=== PATIENT | male | born 1935 | race Caucasian/White ===

== ENCOUNTER 2017-01-28 12:13 | Inpatient (IN) | payer MEDICARE ==
[~2017-01-28] VITALS: Ht 180.3 cm; Wt 60.5 kg
[2017-01-28] MEDS ORDERED: UNKNOWN MEDS (12:37)
[2017-01-28] MEDS ORDERED: LORA0.5T PO (12:37)
[2017-01-28] MEDS: SODIUM CHLORIDE 0.9% 1,000 ML IV SCH (13:27)
[2017-01-28] MEDS ORDERED: ENALAPRILAT 1.25 MG/ML, 2ML IVPush PRN (13:30)
[2017-01-28] MEDS ORDERED: ONDANSETRON 2MG/ML, 2ML IVPush PRN (13:30)
[2017-01-28] MEDS ORDERED: morphine SULFATE 10 MG/ML, 1ML IVPush PRN (13:30)
[2017-01-28] MEDS ORDERED: POLYETHYLENE GLYCOL 17 GM PACKET PO PRN (13:30)
[2017-01-28] MEDS ORDERED: hydrALAzine 20 MG/ML, 1ML IVPush PRN (13:30)
[2017-01-28 13:44] LABS: HEMATOCRIT 39.2 % (39.2-51.8); WHITE BLOOD COUNT 5.3 x10^3/uL (3.4-10)
[2017-01-28 13:59] VITALS: BP 146/81
[2017-01-28] MEDS ORDERED: PLEASE ENTER ALLERGIES MC SCH ×2 (14:00)
[2017-01-28] MEDS ORDERED: POTASSIUM CHLORIDE 40 MEQ in SODIUM CHLORIDE 0.9% 1,000 ML IV SCH (15:27)
[2017-01-28] MEDS ORDERED: FENTANYL PF 100 MCG/2ML ONE ×3 (15:37)
[2017-01-28] MEDS ORDERED: BUPIVACAINE/PF 0.5% ONE (15:57)
[2017-01-28] MEDS ORDERED: THROMBIN 5,000 UNIT VIAL TP ONE (15:58)
[2017-01-28] MEDS ORDERED: BACITRACIN 50,000 UNIT ONE (15:58)
[2017-01-28] MEDS ORDERED: EPINEPHRINE 1 MG/ML, 1ML ONE (15:58)
[2017-01-28] MEDS ORDERED: hydrALAzine 20 MG/ML, 1ML IV PRN (16:00)
[2017-01-28] MEDS ORDERED: FENTANYL PF 100 MCG/2ML IV PRN (16:00)
[2017-01-28] MEDS ORDERED: PROMETHAZINE 25 MG/ML, 1ML IV PRN (16:00)
[2017-01-28] MEDS ORDERED: ALBUTEROL SULFATE 2.5 MG/3 ML NPPB PRN (16:00)
[2017-01-28] MEDS ORDERED: OXYcodone 5 MG/5 ML ORAL.SOL UDC PO PRN (16:00)
[2017-01-28] MEDS ORDERED: METOPROLOL 1 MG/ML, 5ML IV PRN (16:00)
[2017-01-28] MEDS ORDERED: HYDROmorphone 1 MG/ML, 1ML IV PRN (16:00)
[2017-01-28] MEDS ORDERED: ACETAMINOPHEN 325 MG TABLET PO PRN (16:00)
[2017-01-28] MEDS ORDERED: HALOPERIDOL 5 MG/ML IV ONE (16:00)
[2017-01-28] MEDS ORDERED: EPHEDRINE 50 MG/ML, 1ML ONE (16:04)
[2017-01-28] MEDS ORDERED: ONDANSETRON 2MG/ML, 2ML ONE (16:04)
[2017-01-28] MEDS ORDERED: DEXAMETHASONE 4 MG/ML, 1ML ONE (16:04)
[2017-01-28] MEDS ORDERED: CEFAZOLIN 1,000 MG ONE (16:04)
[2017-01-28] MEDS ORDERED: SUCCINYLCHOLINE 20 MG/ML, 10ML ONE (16:04)
[2017-01-28] MEDS ORDERED: PROPOFOL 10 MG/ML, 20ML ONE (16:04)
[2017-01-28] MEDS ORDERED: BUPIVACAINE/PF-EPI 0.5% 1:200K INFIL ONE (16:25)
[2017-01-28] MEDS ORDERED: OXYcodone 5 MG/5 ML ORAL.SOL UDC ONE (17:26)
[2017-01-28] MEDS ORDERED: LEVETIRACETAM 100 MG/ML, 5ML IV SCH (18:00)
[2017-01-28] MEDS: LEVETIRACETAM 500 MG in SODIUM CHLORIDE 0.9% 100 ML IV SCH (20:24)
[2017-01-28] MEDS: CEFUROXIME 1.5 GM in SODIUM CHLORIDE 0.9% 50 ML IVPB SCH (23:08)
[2017-01-29] MEDS: SODIUM CHLORIDE 0.9% 1,000 ML IV SCH (00:46)
[2017-01-29 03:51] VITALS: BP 114/66
[2017-01-29 04:19] LABS: HEMATOCRIT 38.9 % (39.2-51.8); WHITE BLOOD COUNT 6.3 x10^3/uL (3.4-10)
[2017-01-29 04:30] LABS: BLOOD UREA NITROGEN 17 mg/dL (7-18)
[2017-01-29 04:33] LABS: ASPARTATE AMINO TRANSFERASE 15 U/L (15-37)
[2017-01-29] MEDS: LEVETIRACETAM 500 MG in SODIUM CHLORIDE 0.9% 100 ML IV SCH ×2 (05:42→17:17)
[2017-01-29] MEDS: CEFUROXIME 1.5 GM in SODIUM CHLORIDE 0.9% 50 ML IVPB SCH (07:10)
[2017-01-29] MEDS: PANTOPRAZOLE 40 MG IV IVPush SCH (07:10)
[2017-01-29] MEDS ORDERED: SODIUM CHLORIDE 0.9% 1,000 ML IV SCH (08:30)
[2017-01-29] MEDS: SENNA/DOCUSATE TABLET PO SCH (08:45)
[2017-01-29] MEDS: ACETAMINOPHEN 325 MG TABLET PO PRN (12:37)
[2017-01-29] MEDS: OXYcodone IR 5MG TABLET PO PRN ×2 (21:30→22:22)
[2017-01-30] MEDS: OXYcodone IR 5MG TABLET PO PRN (03:23)
[2017-01-30 04:21] VITALS: BP 128/70
[2017-01-30 04:23] LABS: HEMATOCRIT 37.6 % (39.2-51.8); HEMOGLOBIN 12.4 g/dL (13.7-18.0); WHITE BLOOD COUNT 7.2 x10^3/uL (3.4-10)
[2017-01-30 04:31] LABS: BLOOD UREA NITROGEN 18 mg/dL (7-18)
[2017-01-30] MEDS: LEVETIRACETAM 500 MG in SODIUM CHLORIDE 0.9% 100 ML IV SCH ×2 (05:34→16:59)
[2017-01-30] MEDS: PANTOPRAZOLE 40 MG IV IVPush SCH (06:43)
[2017-01-30] MEDS: SENNA/DOCUSATE TABLET PO SCH (08:06)
[2017-01-30] MEDS ORDERED: ERGOCALCIFEROL 50,000 UNIT CAPSULE PO SCH (14:00)
[2017-01-30 18:19] VITALS: BP 144/88
[2017-01-31] MEDS: ACETAMINOPHEN 325 MG TABLET PO PRN ×2 (00:16→19:52)
[2017-01-31 02:26] VITALS: BP 140/77
[2017-01-31] MEDS: LEVETIRACETAM 500 MG in SODIUM CHLORIDE 0.9% 100 ML IV SCH ×2 (05:21→17:52)
[2017-01-31 05:30] LABS: HEMATOCRIT 39.5 % (39.2-51.8); HEMOGLOBIN 13.3 g/dL (13.7-18.0); WHITE BLOOD COUNT 6.6 x10^3/uL (3.4-10)
[2017-01-31] MEDS: SENNA/DOCUSATE TABLET PO SCH (07:44)
[2017-01-31 08:34] VITALS: BP 128/73
[2017-01-31 13:11] VITALS: BP 112/68
[2017-01-31] MEDS ORDERED: ERGO500017 PO (13:46)
[2017-01-31] MEDS ORDERED: LEVE500T53 PO (13:46)
[2017-01-31] MEDS ORDERED: TRAM50TA2 PO (13:46)
[2017-01-31] MEDS ORDERED: ENAL1.2513 IVPush (13:46)
[2017-01-31] MEDS ORDERED: HYDR20VI3 IVPush (13:46)
[2017-01-31 20:03] VITALS: BP 128/73
[2017-02-01 03:18] VITALS: BP 109/72
[2017-02-01 05:09] LABS: HEMATOCRIT 38.4 % (39.2-51.8); HEMOGLOBIN 13.1 g/dL (13.7-18.0); WHITE BLOOD COUNT 6.2 x10^3/uL (3.4-10)
[2017-02-01] MEDS: LEVETIRACETAM 500 MG in SODIUM CHLORIDE 0.9% 100 ML IV SCH (05:46)
[2017-02-01] MEDS: SENNA/DOCUSATE TABLET PO SCH (07:04)
[2017-02-01 08:05] VITALS: BP 121/83
[2017-02-01] MEDS: ACETAMINOPHEN 325 MG TABLET PO PRN (13:52)
[2017-02-01 14:05] VITALS: BP 110/74
[2017-02-01 16:56] VITALS: BP 131/75
== END 2017-02-01 17:22 | DRG 25 ==
LOC: ED 12:36 → EDIP 13:38 → 4NOR 13:55 → CCU 17:53 → 4NOR 01-30 17:55
PROVIDERS: ADMIT Internal Medicine; ATTEND Internal Medicine
PROC: 30233R1 Transfusion of Nonautologous Platelets into Peripheral Vein, Percutaneous Approach (ICD-10-PCS; 2017-01-28)
PROC: 00C40ZZ Extirpation of Matter from Intracranial Subdural Space, Open Approach (ICD-10-PCS; principal; 2017-01-28 15:15)
DX: S06.5X9A Traumatic subdural hemorrhage with loss of consciousness of unspecified duration, initial encounter (principal); E43 Unspecified severe protein-calorie malnutrition; D64.9 Anemia, unspecified; I34.0 Nonrheumatic mitral (valve) insufficiency; E83.51 Hypocalcemia; E55.9 Vitamin D deficiency, unspecified; R26.2 Difficulty in walking, not elsewhere classified; R29.6 Repeated falls; M19.90 Unspecified osteoarthritis, unspecified site; I45.10 Unspecified right bundle-branch block; Z79.82 Long term (current) use of aspirin; Z85.038 Personal history of other malignant neoplasm of large intestine; Z87.891 Personal history of nicotine dependence; Z95.0 Presence of cardiac pacemaker; Z81.8 Family history of other mental and behavioral disorders
CPT/HCPCS: 36415; 70450; 80048; 80053; 82306; 83970; 85025; 85610; 86850; 86900; 87081; 93005; 99285; C1713; J0171; J0690; J0697; J1100; J1953; J2405; J2704; J3010; J3480; J3490; 92523-GN; C9113; J0330; J7030; P9035

== ENCOUNTER 2017-07-13 07:08 | Day surgery (SDC) | payer MEDICARE ==
[~2017-07-13] VITALS: Ht 177.8 cm; Wt 58.9 kg
[~2017-07-13 07:08] MED LIST: ENAL1.2513 IVPush; ERGO500017 PO; HYDR20VI3 IVPush; LEVE500T53 PO; LORA0.5T PO; TRAM50TA2 PO; UNKNOWN MEDS
[2017-07-13] MEDS ORDERED: LACTATED RINGERS 1,000 ML IV SCH (08:03)
[2017-07-13 08:05] VITALS: BP 130/81
[2017-07-13] MEDS ORDERED: ESCI10TA PO (08:17)
[2017-07-13] MEDS ORDERED: LEVO175T5 PO (08:17)
[2017-07-13] MEDS ORDERED: LORA-445 PO (08:17)
[2017-07-13] MEDS ORDERED: HYDR-3240 PO (08:17)
[2017-07-13] MEDS ORDERED: DOCU100C33 PO (08:17)
[2017-07-13] MEDS ORDERED: METO25TA91 PO (08:17)
[2017-07-13] MEDS ORDERED: TRAZ50TA18 PO (08:17)
[2017-07-13] MEDS ORDERED: NAPR500T4 PO (08:17)
[2017-07-13] MEDS ORDERED: FENTANYL PF 100 MCG/2ML ONE (08:50)
[2017-07-13] MEDS ORDERED: MIDAZOLAM 1 MG/ML, 2ML ONE (08:50)
[2017-07-13] MEDS ORDERED: DEXAMETHASONE 4 MG/ML, 1ML ONE ×2 (09:05→10:48)
[2017-07-13] MEDS ORDERED: ONDANSETRON 2MG/ML, 2ML ONE ×2 (09:05→10:48)
[2017-07-13] MEDS ORDERED: CEFAZOLIN 1,000 MG ONE ×2 (09:05→10:48)
[2017-07-13] MEDS ORDERED: PROPOFOL 10 MG/ML, 20ML ONE ×2 (09:05→10:48)
[2017-07-13] MEDS ORDERED: OXYcodone 5 MG/5 ML ORAL.SOL UDC PO PRN (10:00)
[2017-07-13] MEDS ORDERED: ONDANSETRON 2MG/ML, 2ML IVPush PRN (10:00)
[2017-07-13] MEDS ORDERED: HYDROcodone/APAP 7.5-325MG/15ML UDC PO PRN (10:00)
[2017-07-13] MEDS ORDERED: DIAZEPAM 5 MG/ML, 2ML IVPush PRN (10:00)
[2017-07-13] MEDS ORDERED: ACETAMINOPHEN 325 MG TABLET PO PRN (10:00)
[2017-07-13] MEDS ORDERED: EPHEDRINE 50 MG/ML, 1ML IVPush PRN (10:00)
[2017-07-13] MEDS ORDERED: ALBUTEROL SULFATE 2.5 MG/3 ML NPPB PRN (10:00)
[2017-07-13] MEDS ORDERED: PROMETHAZINE 12.5 MG SUPP PR PRN (10:00)
[2017-07-13] MEDS ORDERED: MIDAZOLAM 1 MG/ML, 2ML IV PRN (10:00)
[2017-07-13] MEDS ORDERED: LABETALOL 5MG/ML, 20ML IV PRN (10:00)
[2017-07-13] MEDS ORDERED: METOPROLOL 1 MG/ML, 5ML IV PRN (10:00)
[2017-07-13] MEDS ORDERED: HYDROmorphone 1 MG/ML, 1ML IV PRN (10:00)
[2017-07-13] MEDS ORDERED: FENTANYL PF 100 MCG/2ML IV PRN (10:00)
[2017-07-13] MEDS ORDERED: MEPERIDINE/PF 25MG/0.5ML IVPush PRN (10:00)
[2017-07-13] MEDS ORDERED: hydrALAzine 20 MG/ML, 1ML IV PRN (10:00)
== END 2017-07-13 13:40 ==
LOC: OUT 07:08
PROVIDERS: ATTEND Orthopaedic Surgery
DX: S42.291A Other displaced fracture of upper end of right humerus, initial encounter for closed fracture (principal); I10 Essential (primary) hypertension; E03.9 Hypothyroidism, unspecified; F41.9 Anxiety disorder, unspecified; X58.XXXA Exposure to other specified factors, initial encounter; Y93.89 Activity, other specified; Y92.89 Other specified places as the place of occurrence of the external cause; Y99.8 Other external cause status; Z85.038 Personal history of other malignant neoplasm of large intestine; Z95.0 Presence of cardiac pacemaker
CPT/HCPCS: 23615; 73060; 76000; 93005; C1713; J0690; J1100; J2250; J2405; J2704; J3010; J7120

== ENCOUNTER 2017-07-14 17:21 | Emergency (ER) | payer MEDICARE ==
[~2017-07-14] VITALS: Ht 180.3 cm; Wt 60.0 kg
[~2017-07-14 17:21] MED LIST changes: +DOCU100C33 PO; +ESCI10TA PO; +HYDR-3240 PO; +LEVO175T5 PO; +LORA-445 PO; +METO25TA91 PO; +NAPR500T4 PO; +TRAZ50TA18 PO
[2017-07-14] MEDS ORDERED: LIDOCAINE/MPF 2%-EPI 1:200K, 20 ML INFIL ONE (18:30)
[2017-07-14 20:18] VITALS: BP 112/74
== END 2017-07-14 21:14 | disposition home or self-care (01) ==
LOC: ED 20:46
DX: M96.831 Postprocedural hemorrhage of a musculoskeletal structure following other procedure (principal); J44.9 Chronic obstructive pulmonary disease, unspecified; I10 Essential (primary) hypertension; E03.9 Hypothyroidism, unspecified; Z87.891 Personal history of nicotine dependence
CPT/HCPCS: 36415; 85014; 85018; 99284